=== PATIENT | male | born 2005 | race Hispanic/Latino ===

== ENCOUNTER 2024-11-09 14:20 | Emergency (ER) | payer SELFPAY ==
[2024-11-09] MEDS ORDERED: Morphine 4 MG/ML VIAL ONE ×2 (15:03→16:44)
[2024-11-09] MEDS ORDERED: Ondansetron PF 4 MG/2 ML Vial ONE (16:44)
[2024-11-09] MEDS ORDERED: KETAMINE 100 MG/ML (5ML VIAL) ONE (16:45)
== END 2024-11-09 18:33 | disposition home or self-care (01) ==
LOC: ERS 14:20 → EDBD 14:20 → ERS 18:33
DX: S52.502A Unspecified fracture of the lower end of left radius, initial encounter for closed fracture (principal); Z75.8 Other problems related to medical facilities and other health care; W11.XXXA Fall on and from ladder, initial encounter
CPT/HCPCS: 25605; 96374; 96375; 96376; J2270; J2405